=== PATIENT | male | born 1970 | race Two or more races ===

== ENCOUNTER 2017-07-02 09:04 | Emergency (ER) | payer MEDICAID ==
[~2017-07-02] VITALS: Ht 165.1 cm; Wt 87.5 kg
[2017-07-02 09:21] VITALS: BP 125/91
== END 2017-07-02 10:35 | disposition home or self-care (01) ==
LOC: ER 09:04
DX: T25.222A Burn of second degree of left foot, initial encounter (principal); T25.221A Burn of second degree of right foot, initial encounter; X58.XXXA Exposure to other specified factors, initial encounter; Y93.89 Activity, other specified; Y99.8 Other external cause status; Y92.89 Other specified places as the place of occurrence of the external cause

== ENCOUNTER 2017-11-03 13:01 | Emergency (ER) | payer MEDICAID ==
[~2017-11-03] VITALS: Ht 167.6 cm; Wt 89.8 kg
[2017-11-03 15:26] VITALS: BP 120/82
[2017-11-03] MEDS ORDERED: cefTRIAXone SOD 1,000 MG VL ONE (15:27)
[2017-11-03] MEDS ORDERED: cefTRIAXone W LIDOCAINE 1 GM IM IM ONE (15:30)
== END 2017-11-03 15:33 | disposition home or self-care (01) ==
LOC: ER 13:01
DX: J02.9 Acute pharyngitis, unspecified (principal)
CPT/HCPCS: 96372; 99283; J0696